=== PATIENT | male | born 1945 | race Two or more races ===

== ENCOUNTER 2019-05-01 13:44 | Inpatient (IN) | payer MEDICARE ==
[~2019-05-01] VITALS: Ht 190.5 cm; Wt 100.7 kg
[2019-05-01] MEDS ORDERED: MELA3TAB63 PO (14:55)
[2019-05-01] MEDS ORDERED: ALBU8.5H8 IH (14:55)
[2019-05-01] MEDS ORDERED: LISI-603 PO (14:55)
[2019-05-01] MEDS ORDERED: TAMS-12 PO (14:55)
[2019-05-01] MEDS ORDERED: ASPI-1152 PO (14:55)
[2019-05-01] MEDS ORDERED: FINA5TAB11 PO (14:55)
[2019-05-01] MEDS ORDERED: QUET25TA PO (14:55)
[2019-05-01] MEDS ORDERED: ESCI10TA PO (14:55)
[2019-05-01] MEDS ORDERED: BUPR-319 PO (14:55)
[2019-05-01] MEDS ORDERED: PANT40TA2 PO (14:55)
[2019-05-01 16:00] VITALS: BP 155/65
[2019-05-01] MEDS ORDERED: BLOOD SUGAR DIAGNOSTIC 1 EACH STRIP IN ONE (16:00)
[2019-05-01] MEDS ORDERED: LORAZEPAM 0.5 MG TABLET PO PRN (16:00)
[2019-05-01] MEDS ORDERED: MAG HYDROX/AL HYDROX/SIMETH 30 ML UDC PO PRN (16:00)
[2019-05-01] MEDS ORDERED: MAGNESIUM HYDROXIDE 30 ML UDC PO PRN (16:00)
--- NOTE | 2019-05-01 16:14 | NUR ---
GPS DRAFTER GEOPHYSICAL NOTE: PATIENT IS A 73 YEAR OLD MALE, BROUGHT IN TO THE HOSPITAL BY AMBULANCE, ADMITTED ON A 5150 FOR GRAVELY DISABLED A DIRECT ADMIT FROM [facility], ORIGINALLY FROM HOME. PATIENT IS ADMITTED ON A 5150 FOR GRAVELY DISABLED. SISTER CALLED POLICE TO PERFORM WELFARE CHECK DUE TO PATIENT SOUNDING INCREASINGLY CONFUSED AND POSSIBLY SOUNDING EITHER "OVERMEDICATED" OR "UNDERMEDICATED". UPON WELFARE CHECK PATIENT WAS NOTICED TO BE DISORIENTED, CONFUSED, DISORGANIZED AND UNABLE TO VERBALIZE PLAN FOR SELF CARE. UPON FACE TO FACE ASSESSMENT PATIENT IS AOX1, DISORIENTED, CONFUSED, DISORGANIZED. UNABLE TO RESPOND TO QUESTIONS REGARDING SI/HI AND VAH WELL PAST MEDICAL HISTORY DUE TO DISORIENTATION. PATIENT USES TANGENTIAL CONFABULATED LANGUAGE AND HAS HX OF DEMENTIA. PATIENT IS AMBULATORY WITH STEADY GAIT. PATIENT SKIN WAS CHECKED AND THERE ARE NO WOUNDS. PATIENT SIGNED ADMISSION CONSENT FORMS. SISTER AND BROTHER WERE NOTIFIED OF ADMISSION. BED IS LOCKED, IN LOW POSITION, WITH 2 SIDE RAILS UP. BED ALARM IS ON. PATIENT ORIENTED TO UNIT. INFORMED DR KEMP AND VAZQUEZ CHERY FIRE CONTROL MECHANIC OF ADMISSION WITH ADMISSION ORDERS RECEIVED. PATIENTS RIGHTS HANDBOOK AND GUIDE TO PRESCRIPTIONS GIVEN. WILL CONTINUE TO MONITOR PATIENT Q15 FOR MOOD, SAFETY AND BEHAVIOR.
[2019-05-01] MEDS ORDERED: ALBUTEROL FS 2.5 MG/3 ML VIAL.NEB NEB PRN (17:09)
[2019-05-01] MEDS: TAMSULOSIN 0.4 MG CAP.SR.24H PO SCH (18:00)
[2019-05-01 20:21] VITALS: BP 102/74
[2019-05-01] MEDS: TEMAZEPAM 7.5 MG CAPSULE PO PRN (21:45)
--- NOTE | 2019-05-01 21:47 | NUR ---
GPS RN NOTES: C/O OF UNABLE TO SLEEP PT C/O UNABLE TO SLEEP. PT REQUESTED SLEEPING PILL. PT STATED, " I CANT SLEEP. CAN I HAVE SLEEPING PILL?" CHECKED PTS VITALS WNL. OFFERED RESTORIL 7.5 MG PO PRN ORDERED. PT AGREED AND TOLERATED MEDICATION WELL. CONTINUE TO MONITOR.
[2019-05-01 21:51] VITALS: BP 122/72
--- NOTE | 2019-05-02 05:46 | NUR ---
GPS RN NOTES: REFUSED LABS PT REFUSED TO DRAW LABS. EXPLAIN RISKS AND BENEFITS. PT STILL REFUSED X3. PT STATED, "MAYBE LATER. " WILL ENDORSE TO AM SHIFT TO F/U. CONTINUE TO MONITOR.
[2019-05-02] MEDS: PANTOPRAZOLE 40 MG TABLET.DR PO SCH (07:48)
[2019-05-02 08:00] VITALS: BP 136/76
[2019-05-02] MEDS: FINASTERIDE (5 MG) 5 MG TABLET PO SCH (08:07)
[2019-05-02] MEDS: ASPIRIN EC 81 MG TABLET.DR PO SCH (08:07)
[2019-05-02] MEDS: LISINOPRIL (20MG) 20 MG TABLET PO SCH (08:08)
[2019-05-02] MEDS: NICOTINE PATCH (7MG) 7 MG PATCH.TD24 TD SCH (08:08)
[2019-05-02 08:51] LABS: BILIRUBIN,TOTAL 0.6 mg/dL (0.2-1.0); CALCIUM, SERUM 9.1 mg/dL (8.5-10.1); MAGNESIUM 1.8 mg/dL (1.8-2.4); PHOSPHORUS 3.7 mg/dL (2.5-4.9); POTASSIUM 3.9 mmol/L (3.5-5.1); TOTAL PROTEIN, SERUM 7.1 g/dL (6.4-8.2)
[2019-05-02 09:00] LABS: THYROID STIMULATING HORMONE 2.03 uIU/mL (0.358-3.74)
--- NOTE | 2019-05-02 09:00 | NUR ---
RN NOTE- PT AMBULATING IN HALLS, CONFUSED, FRAGMENTED CONVERSATIONS. PT IS CALM, COOPERATIVE, FORGETFUL. SELF CARE AND GROOMING ENCOURAGED AND COMPLETED. PO INTAKE GOOD. MED COMPLIANT. NO BEHAVIORAL ISSUES. NO SI OR HI AT THIS TIME. CONTINUE TO MONITOR. SAFETY CHECK Q15MIN
[2019-05-02 09:06] LABS: BASOPHILS % (AUTO) 0.7 % (0.0-2.0); EOSINOPHILS % (AUTO) 2.8 % (0.0-6.0); HEMATOCRIT 42 % (39-51); HEMOGLOBIN 14.1 g/dL (13.5-17.5); LYMPHOCYTES # (AUTO) 1.3 /CMM (0.8-4.8); LYMPHOCYTES % (AUTO) 19.3 % (20.0-44.0); MEAN CORPUSCULAR HGB CONC 34 g/dl (31.0-36.0); MEAN CORPUSCULAR VOLUME 93 fL (80-96); MONOCYTES # (AUTO) 0.7 /CMM (0.1-1.30); MONOCYTES % (AUTO) 11.2 % (2.0-12.0); NEUTROPHILS # (AUTO) 4.3 /CMM (1.8-8.9); PLATELET COUNT (AUTO) 259 /CMM (150-450); RED BLOOD CELL COUNT(AUTO) 4.49 MIL/uL (4.5-6.0); WHITE BLOOD COUNT (AUTO) 6.6 K/uL (4.3-11.0)
--- NOTE | 2019-05-02 12:04 | NUR ---
FAMILY CONTACT: JESSENIA contacted pts drew Jaeger [phone] for collateral information, treatment and discharge planning. Nephew states that he is pts only relative that lives in [place] and that pts brother and sister live out of state. Drew states that pt receives mental health [facility] and believes pt has not been medicated properly and that is why he was hospitalized. Mil states that this is pts first psychiatric hospitalization that he is aware of and states that he does not know much about pts history. Drew states that he will make himself available for transport once pt is stable and he also states that he wishes for pt to return back home.
--- NOTE | 2019-05-02 14:07 | NUR ---
INITIAL DISCHARGE PLAN: Per pt he wishes to return home [address] [place] [address], . Pts nephew Mil [phone] states that it is safe for pt to return and he will be picking pt up and transporting home. SW will help form a safe and proper discharge in collaboration with .
[2019-05-02 16:00] VITALS: BP 132/74
[2019-05-02] MEDS: TAMSULOSIN 0.4 MG CAP.SR.24H PO SCH (18:15)
[2019-05-02 18:38] LABS: APPEARANCE,URINE CLEAR (CLEAR); COLOR,URINE YELLOW (YELLOW)
[2019-05-02 18:39] LABS: BLOOD, URINE NEGATIVE Ery/uL (NEGATIVE); PH,URINE 6.5 (5.0-8.0); PROTEIN,URINE NEGATIVE (NEGATIVE); UGLUCOSE NEGATIVE (NEGATIVE)
[2019-05-02 18:40] LABS: BILIRUBIN,URINE NEGATIVE (NEGATIVE); KETONES,URINE NEGATIVE (NEGATIVE); LEUKOCYTE ESTERASE ,URINE NEGATIVE (NEGATIVE); NITRITE, URINE NEGATIVE (NEGATIVE); UROBILINOGEN,URINE 0.2 EU/dL (0.2)
--- NOTE | 2019-05-02 19:20 | NUR ---
GPS RN opening notes Received Pt in bed and awake. Pt is alert and orientedX1, anxious, forgetful,confused, calm and med compliant. Respiration is normal in room air. No SOB. No S/S of distress noted. Offered fluids and snacks. Pt denies SI/HI at this time. Reality orientation provided. Safety precautions is maintained. Will continue to monitor for mood safety and behavior Q 15 mins checks according to [facility] hospital protocol.
[2019-05-02 20:00] VITALS: BP 123/83
[2019-05-02] MEDS: QUETIAPINE FUMARATE 100 MG TABLET PO SCH (21:02)
[2019-05-02] MEDS: TEMAZEPAM 7.5 MG CAPSULE PO PRN (21:55)
--- NOTE | 2019-05-02 21:55 | NUR ---
GPS RN notes Pt is unable to sleep and requesting sleeping pill. Administered restoril 7.5 mg/1 tab/po as ordered for sleeping. Safety precautions is maintained. Will continue to monitor.
--- NOTE | 2019-05-03 07:28 | NUR ---
GPS RN closing notes Pt is resting in bed comfortably. Respiration is normal. No SOB. No S/S of distress noted. VS is stable. Routine meds were given as ordered. Kept Pt clean, dry and comfortable. All needs met and attended. Safety precautions is maintained. Bed at low position, brakes locked, side rails upX2. Will endorse to morning nurse for SLIME.
[2019-05-03 08:00] VITALS: BP 156/68
[2019-05-03] MEDS: FINASTERIDE (5 MG) 5 MG TABLET PO SCH (08:11)
[2019-05-03] MEDS: NICOTINE PATCH (7MG) 7 MG PATCH.TD24 TD SCH (08:11)
[2019-05-03] MEDS: PANTOPRAZOLE 40 MG TABLET.DR PO SCH (08:11)
[2019-05-03] MEDS: ASPIRIN EC 81 MG TABLET.DR PO SCH (08:11)
[2019-05-03] MEDS: LISINOPRIL (20MG) 20 MG TABLET PO SCH (08:12)
[2019-05-03] MEDS: QUETIAPINE FUMARATE 25 MG TABLET PO SCH (08:20)
--- NOTE | 2019-05-03 10:03 | NUR ---
GPS RN OPENING NOTE: PT AMBULATING IN HALLS, CONFUSED, AOX1. STUTTERS DUE TO TBI. FRAGMENTED CONVERSATIONS WITH CONFABULATION. PT IS CALM, COOPERATIVE, FORGETFUL. SELF CARE AND GROOMING ENCOURAGED AND COMPLETED. PO INTAKE 100% OP MEALS. MED COMPLIANT. NO SI OR HI OR VAH AT THIS TIME. WILL CONTINUE TO MONITOR Q15 FOR MOOD, SAFETY AND BEHAVIOR
--- NOTE | 2019-05-03 14:56 | NUR ---
GROUP NOTE: SW encouraged pt to participate in group therapy on this present day discussing, "reality-testing." Pt refused to participate stating that he was here by mistake and wanted to leave. SW provided individual counseling and explained the reason for being on a hold. Pt showed SW the 72 hour hold advisement form and stated that he wanted to be discharged tomorrow.
[2019-05-03 16:00] VITALS: BP 98/54
[2019-05-03] MEDS: TAMSULOSIN 0.4 MG CAP.SR.24H PO SCH (17:25)
[2019-05-03 20:16] VITALS: BP 105/63
[2019-05-03] MEDS: QUETIAPINE FUMARATE 100 MG TABLET PO SCH (21:41)
[2019-05-03] MEDS: TEMAZEPAM 7.5 MG CAPSULE PO PRN (22:21)
[2019-05-04 08:00] VITALS: BP 127/71
[2019-05-04] MEDS: PANTOPRAZOLE 40 MG TABLET.DR PO SCH (08:21)
[2019-05-04] MEDS: NICOTINE PATCH (7MG) 7 MG PATCH.TD24 TD SCH (08:30)
[2019-05-04] MEDS: FINASTERIDE (5 MG) 5 MG TABLET PO SCH (08:30)
[2019-05-04] MEDS: QUETIAPINE FUMARATE 25 MG TABLET PO SCH (08:30)
[2019-05-04] MEDS: LISINOPRIL (20MG) 20 MG TABLET PO SCH (08:30)
[2019-05-04] MEDS: ASPIRIN EC 81 MG TABLET.DR PO SCH (08:30)
--- NOTE | 2019-05-04 09:33 | NUR ---
GPS RN OPENING NOTE: RECEIVED PATIENT IN BED, RESTING. AFTER BREAKFAST PATIENT WENT BACK TO SLEEP. STUTTERS DUE TO TBI. PT IS CALM, COOPERTIVE, FORGETFUL. SELF CARE AND GROOMING ENCOURAGED AND COMPLETED. PO INTAKE 100% OF MEALS. MED COMPLIANT. NO SI OR HI OR VAH AT THIS TIME. WILL CONTINUE TO MONITOR Q15 FOR MOOD, SAFETY AND BEHAVIOR
[2019-05-04 16:00] VITALS: BP 108/63
[2019-05-04] MEDS: TAMSULOSIN 0.4 MG CAP.SR.24H PO SCH (17:23)
[2019-05-04 20:00] VITALS: BP 136/70
[2019-05-04] MEDS: QUETIAPINE FUMARATE 100 MG TABLET PO SCH (21:53)
[2019-05-04] MEDS: TEMAZEPAM 7.5 MG CAPSULE PO PRN (22:39)
[2019-05-05 08:00] VITALS: BP 130/75
[2019-05-05] MEDS: LISINOPRIL (20MG) 20 MG TABLET PO SCH (08:08)
[2019-05-05] MEDS: ASPIRIN EC 81 MG TABLET.DR PO SCH (08:08)
[2019-05-05] MEDS: PANTOPRAZOLE 40 MG TABLET.DR PO SCH (08:08)
[2019-05-05] MEDS: QUETIAPINE FUMARATE 25 MG TABLET PO SCH (08:08)
[2019-05-05] MEDS: FINASTERIDE (5 MG) 5 MG TABLET PO SCH (08:08)
[2019-05-05] MEDS: NICOTINE PATCH (7MG) 7 MG PATCH.TD24 TD SCH (08:08)
[2019-05-05 16:00] VITALS: BP 115/76
[2019-05-05] MEDS: TAMSULOSIN 0.4 MG CAP.SR.24H PO SCH (17:08)
[2019-05-05 20:29] VITALS: BP 137/100
[2019-05-05] MEDS: QUETIAPINE FUMARATE 100 MG TABLET PO SCH (21:10)
[2019-05-05] MEDS: TEMAZEPAM 7.5 MG CAPSULE PO PRN (21:11)
--- NOTE | 2019-05-05 21:37 | NUR ---
GPS/BEAM SEALER NURSING NOTES: PT. IN THE HALLS. NO DISTRESS OR AGITATION NOTED. CONFUSED AND RESTLESS AT TIMES. REALITY ORIENTATION DONE AND REDIRECTED. NO C/O PAIN OR DISCOMFORT. SAFETY ENVIRONMENT OBSERVED AT ALL TIMES. WILL CONTINUE TO MONITOR Q 15 MIN FOR SAFETY AND BEHAVIOR.
[2019-05-06] MEDS: QUETIAPINE FUMARATE 25 MG TABLET PO SCH (08:28)
[2019-05-06] MEDS: FINASTERIDE (5 MG) 5 MG TABLET PO SCH (08:28)
[2019-05-06] MEDS: NICOTINE PATCH (7MG) 7 MG PATCH.TD24 TD SCH (08:28)
[2019-05-06] MEDS: ASPIRIN EC 81 MG TABLET.DR PO SCH (08:28)
[2019-05-06] MEDS: LISINOPRIL (20MG) 20 MG TABLET PO SCH (08:29)
[2019-05-06] MEDS: PANTOPRAZOLE 40 MG TABLET.DR PO SCH (08:29)
[2019-05-06 08:42] VITALS: BP 135/68
--- NOTE | 2019-05-06 08:44 | NUR ---
gps cae engineer: notes noted with delusional thoughts m/b verbalizing anger with anxiousness. ativan 0.5mg po given as ordered. reality orientation provided prn. will continue to monitor.
--- NOTE | 2019-05-06 09:44 | NUR ---
gps strategic intelligence officer: notes pt calm and request to shower. no anxiety noted at this time.
--- NOTE | 2019-05-06 13:14 | NUR ---
FAMILY CONTACT: SW received a call from pts sister Ivonne [phone] requesting discharge information. SW informed her that MD has not ordered D/C and will contact her as soon as an order has been made.
--- NOTE | 2019-05-06 15:17 | NUR ---
FAMILY CONTACT: JESSENIA contacted pts sister Ivonne [phone] and informed her pt will be discharged on Thursday05/09/19. She stated she will contact pts nephew for transportation.
--- NOTE | 2019-05-06 15:19 | NUR ---
FAMILY CONTACT: SW contacted pts nephew Mil [phone] and left a voicemail informing him pt will be discharged on Thursday05/09/19 and will be needing transportation. SW requested a callback.
[2019-05-06 16:04] VITALS: BP 156/79
[2019-05-06] MEDS: TAMSULOSIN 0.4 MG CAP.SR.24H PO SCH (17:43)
[2019-05-06 20:00] VITALS: BP 143/86
[2019-05-06] MEDS: QUETIAPINE FUMARATE 100 MG TABLET PO SCH (21:26)
[2019-05-07 08:00] VITALS: BP 101/56
[2019-05-07] MEDS: PANTOPRAZOLE 40 MG TABLET.DR PO SCH (08:21)
[2019-05-07] MEDS: FINASTERIDE (5 MG) 5 MG TABLET PO SCH (08:32)
[2019-05-07] MEDS: ASPIRIN EC 81 MG TABLET.DR PO SCH (08:32)
[2019-05-07] MEDS: LISINOPRIL (20MG) 20 MG TABLET PO SCH (08:32)
[2019-05-07] MEDS: QUETIAPINE FUMARATE 25 MG TABLET PO SCH (08:32)
[2019-05-07] MEDS: NICOTINE PATCH (7MG) 7 MG PATCH.TD24 TD SCH (08:32)
--- NOTE | 2019-05-07 10:11 | NUR ---
GPS RN NOTE: RECEIVED PATIENT IN BED, RESTING. AFTER BREAKFAST PATIENT WENT BACK TO SLEEP. STUTTERS DUE TO TBI. PT IS CALM, COOPERATIVE, FORGETFUL. SELF CARE AND GROOMING ENCOURAGED AND COMPLETED. PO INTAKE 100% OF MEALS. MED COMPLIANT. NO SI OR HI OR VAH AT THIS TIME. WILL CONTINUE TO MONITOR Q15 FOR MOOD, SAFETY AND BEHAVIOR
[2019-05-07] MEDS: ACETAMINOPHEN 325 MG TABLET PO PRN (11:58)
[2019-05-07 16:00] VITALS: BP 115/65
[2019-05-07] MEDS: TAMSULOSIN 0.4 MG CAP.SR.24H PO SCH (17:25)
[2019-05-07 20:10] VITALS: BP 135/76
[2019-05-07] MEDS: TEMAZEPAM 7.5 MG CAPSULE PO PRN (21:31)
[2019-05-07] MEDS: QUETIAPINE FUMARATE 100 MG TABLET PO SCH (22:03)
[2019-05-08 08:08] VITALS: BP 133/63
[2019-05-08] MEDS: PANTOPRAZOLE 40 MG TABLET.DR PO SCH (08:40)
--- NOTE | 2019-05-08 09:08 | NUR ---
GPS RN NURSING NOTE: RECEIVED PATIENT IN BED, RESTING. PATIENT IS DISPLAYING NO S/S OF APPARENT DISTRESS AT THIS TIME. PATIENT BREATHING IS UNLABORED WITH EQUAL RISE AND FALL OF THE CHEST. STUTTERS DUE TO TBI. PT IS CALM, COOPERATIVE, FORGETFUL. SELF CARE AND GROOMING ENCOURAGED AND COMPLETED. PO INTAKE 100% OF MEALS. MED COMPLIANT. NO SI OR HI OR VAH AT THIS TIME. WILL CONTINUE TO MONITOR Q15 FOR MOOD, SAFETY AND BEHAVIOR
[2019-05-08] MEDS: NICOTINE PATCH (7MG) 7 MG PATCH.TD24 TD SCH (09:39)
[2019-05-08] MEDS: QUETIAPINE FUMARATE 25 MG TABLET PO SCH (09:39)
[2019-05-08] MEDS: ASPIRIN EC 81 MG TABLET.DR PO SCH (09:39)
[2019-05-08] MEDS: FINASTERIDE (5 MG) 5 MG TABLET PO SCH (09:39)
[2019-05-08] MEDS: LISINOPRIL (20MG) 20 MG TABLET PO SCH (09:40)
[2019-05-08] MEDS: ACETAMINOPHEN 325 MG TABLET PO PRN ×2 (15:41→19:57)
[2019-05-08 16:00] VITALS: BP 128/68
[2019-05-08] MEDS: TAMSULOSIN 0.4 MG CAP.SR.24H PO SCH (17:11)
[2019-05-08 20:06] VITALS: BP 118/76
[2019-05-08] MEDS: QUETIAPINE FUMARATE 100 MG TABLET PO SCH (21:13)
[2019-05-08] MEDS: TEMAZEPAM 7.5 MG CAPSULE PO PRN (21:59)
--- NOTE | 2019-05-09 06:48 | NUR ---
GPS RN NOTE PT REFUSED WEEKLY SKIN ASSESSMENT. NO S/S OF ANY DISTRESS OR PAIN AT THIS TIME. WILL ENDORSE TO AM NURSE.
[2019-05-09] MEDS: PANTOPRAZOLE 40 MG TABLET.DR PO SCH (07:30)
[2019-05-09 08:00] VITALS: BP 117/67
--- NOTE | 2019-05-09 08:31 | NUR ---
FAMILY CONTACT: JESSENIA contacted pts nephew Mil [phone] and informed him pt will be discharged on this present day. He stated he will pick pt up before 3:00pm on this present day.
[2019-05-09] MEDS: ASPIRIN EC 81 MG TABLET.DR PO SCH (08:33)
[2019-05-09] MEDS: FINASTERIDE (5 MG) 5 MG TABLET PO SCH (08:33)
[2019-05-09] MEDS: NICOTINE PATCH (7MG) 7 MG PATCH.TD24 TD SCH (08:33)
[2019-05-09] MEDS: LISINOPRIL (20MG) 20 MG TABLET PO SCH (08:33)
[2019-05-09] MEDS: QUETIAPINE FUMARATE 25 MG TABLET PO SCH (08:34)
--- NOTE | 2019-05-09 08:46 | NUR ---
DISCHARGE NOTE: Pt will be discharged before 3:00pm via private vehicle home [address] [place] [address]. Pts nephew Mil [phone] will be picking pt up and agrees with discharge plan. Pts mood is euthymic with congruent affect. Pt denied visual/auditory hallucinations and denied suicidal/homicidal ideation. Pt will follow up with his mental health services ad medical services at [facility] Address: [address], [place] [address] . The multidisciplinary exit care form was done, printed, signed, and given to the patient.
[2019-05-09 16:00] VITALS: BP 131/57
--- NOTE | 2019-05-09 16:10 | NUR ---
CABLE TOWER OPERATOR NOTE:Patient discharged to home in stable condition .Compliant with medications,cooperative with treatment plans .Patient denies si/hi/avh instructed to go to closest ER if developing si/hi .Behavior improved ,psychiatric tx plans met ,medical treatment plans deferred for continual monitoring .Educated patient and nephew wicho about after care plan and med reconciliation given and explained able to verbalize understanding .Returned personal belongings to patient medication reconciliations with dr. chase MARISELA number given to patient .patient unable to sign discharge papers due to confusion.patient discharged with nephew with private car at 16:10 .
== END 2019-05-09 16:10 | disposition home or self-care (01) | DRG 885 ==
LOC: GPS 14:18
PROVIDERS: ADMIT Psychiatry & Neurology Psychiatry; ATTEND Registered Nurse
DX: F29 Unspecified psychosis not due to a substance or known physiological condition (principal); F03.91 Unspecified dementia, unspecified severity, with behavioral disturbance; F41.9 Anxiety disorder, unspecified; J45.909 Unspecified asthma, uncomplicated; I10 Essential (primary) hypertension; F32.9 Major depressive disorder, single episode, unspecified; F17.200 Nicotine dependence, unspecified, uncomplicated; K21.9 Gastro-esophageal reflux disease without esophagitis; E66.9 Obesity, unspecified; Z68.27 Body mass index [BMI] 27.0-27.9, adult; G47.00 Insomnia, unspecified; N40.0 Benign prostatic hyperplasia without lower urinary tract symptoms; Z87.820 Personal history of traumatic brain injury; Z73.6 Limitation of activities due to disability; F39 Unspecified mood [affective] disorder; R53.1 Weakness
CPT/HCPCS: 36415; 80053-TC; 80061-TC; 81000-TC; 82962-TC; 83735-TC; 84100-TC; 84443-TC; 85025-TC; 87081-TC